=== PATIENT | female | born 1935 | race Caucasian/White ===

== ENCOUNTER → 2016-07-09 | Outpatient (CLI) | payer MEDICARE, OTHER ==
[~2016-07-09] MED LIST: ASPIR 8181 MG PO; AVALIDE 12.5 MG1 TA2 PO; CAL-CITRATE PLU1 TAB PO; CALCIUM 600 + V1 TA1 PO; CRESTOR10 MG PO; DAYPRO600 M1 PO; FLAXSEED OIL1 CAP PO; HYZAAR 12.5 MG-1 TA1 PO; Hyzaar 12.5 MG-1 TAB PO; LOPRESSOR25 MG PO; MEDROL DOSEPAK4 MG PO; OMEPRAZOLE DR20 MG PO; RED YEAST RICE600 MG PO; ROBAXIN750 MG PO; SIMVASTATIN20 MG PO; VICODIN 500 MG-1 TAB PO; ZYRTEC10 MG PO
== END | disposition home or self-care (01) ==
LOC: US 09:00
DX: I10 Essential (primary) hypertension (principal); I73.9 Peripheral vascular disease, unspecified; R60.0 Localized edema

== ENCOUNTER → 2016-12-23 | Outpatient (CLI) | payer MEDICARE, OTHER | END | disposition home or self-care (01) | LOC: MAMMO 12:13 | DX: Z12.31 Encounter for screening mammogram for malignant neoplasm of breast (principal); R92.8 Other abnormal and inconclusive findings on diagnostic imaging of breast ==

== ENCOUNTER 2017-01-28 10:38 | Emergency (ER) | payer MEDICARE, OTHER ==
[~2017-01-28] VITALS: Wt 66.7 kg
[2017-01-28] MEDS ORDERED: NAPROSYN500 MG PO (12:26)
[2017-01-28] MEDS ORDERED: 'PARAFON FORTE500 M1 PO (12:26)
== END 2017-01-28 13:40 | disposition home or self-care (01) ==
LOC: ED 10:38
DX: M25.511 Pain in right shoulder (principal); M54.41 Lumbago with sciatica, right side; R03.0 Elevated blood-pressure reading, without diagnosis of hypertension; Z88.1 Allergy status to other antibiotic agents; Z88.2 Allergy status to sulfonamides; Z79.82 Long term (current) use of aspirin; Z90.49 Acquired absence of other specified parts of digestive tract

== ENCOUNTER → 2017-06-07 | Outpatient (CLI) | payer MEDICARE, OTHER ==
[~2017-06-07] MED LIST changes: +'PARAFON FORTE500 M1 PO; +NAPROSYN500 MG PO
== END | disposition home or self-care (01) ==
LOC: RAD 14:17
DX: M41.84 Other forms of scoliosis, thoracic region (principal); R06.02 Shortness of breath; R09.89 Other specified symptoms and signs involving the circulatory and respiratory systems; Z90.49 Acquired absence of other specified parts of digestive tract

== ENCOUNTER → 2017-06-10 | Outpatient (CLI) | payer MEDICARE, OTHER | LOC: LAB 10:37 | DX: D64.9 Anemia, unspecified (principal); R19.37 Generalized abdominal rigidity ==

== ENCOUNTER 2017-10-02 10:23 | Emergency (ER) | payer MEDICARE, OTHER ==
[~2017-10-02] VITALS: Ht 157.4 cm; Wt 64.9 kg
[2017-10-02 11:00] LABS: BASO % 0.4 % (0.0-1.0); EOS # 0.1 10*3/uL (0.0-0.4); EOS % 0.8 % (1.0-4.0); HEMATOCRIT 35.1 % (37.0-47.0); HEMOGLOBIN 11.8 g/dl (12.0-16.0); LYMPH # 1.6 10*3/uL (1.3-4.4); LYMPH % 22.1 % (27.0-41.0); MEAN CELL VOLUME 89.5 fl (81.0-99.0); MEAN CORPUSCULAR HGB 30.1 pg (27.0-31.0); MEAN CORPUSCULAR HGB CONC 33.6 g/dl (33.0-37.0); MEAN PLATELET VOLUME 8.9 fl (9.6-12.3); MONO # 0.7 10*3/uL (0.1-1.0); MONO % 8.8 % (3.0-9.0); NEUT # 4.9 10*3/uL (2.3-7.9); PLATELET COUNT AUTOMATED 264 10*3/uL (130-400); RED BLOOD COUNT 3.92 10*6/uL (4.10-5.10); RED CELL DISTRI WIDTH 13.4 % (0-14.5); WHITE BLOOD COUNT 7.4 10*3/uL (4.8-10.8)
[2017-10-02 11:10] LABS: ACT PARTIAL THROMBO TIME 21.5 SECONDS (20.8-31.5)
[2017-10-02 11:16] LABS: ALBUMIN 3.9 gm/dl (3.1-4.5); ALKALINE PHOSPHATASE 49 U/L (45-117); BUN 19 mg/dl (7-24); CHLORIDE 104 mmol/L (98-107); CREATININE 1.32 mg/dL (0.55-1.02); SGOT/AST 26 IU/L (3-35); SGPT/ALT 34 U/L (12-78); SODIUM 141 mmol/L (136-145); TOTAL PROTEIN 7.5 gm/dL (6.4-8.2)
[2017-10-02 11:23] LABS: TROPONIN I < 0.015 ng/ml (<0.045)
[2017-10-02 12:33] LABS: BILIRUBIN NEGATIVE (NEGATIVE); BLOOD NEGATIVE (NEGATIVE); CLARITY CLEAR (CLEAR); COLOR YELLOW (YELLOW); GLUCOSE NEGATIVE (NEGATIVE); KETONE NEGATIVE (NEGATIVE); LEUKO ESTERASE NEGATIVE (NEGATIVE); NITRITE NEGATIVE (NEGATIVE); PH 5.5 (5.0-9.0); SPECIFIC GRAVITY <= 1.005 (1.005-1.030); UROBILINOGEN 0.2 E.U./dl (0.2-1.0)
[2017-10-02 12:45] LABS: BACTERIA TRACE
== END 2017-10-02 13:12 | disposition home or self-care (01) ==
LOC: ED 10:23
PROVIDERS: Emergency Medicine
DX: R53.83 Other fatigue (principal); Z79.82 Long term (current) use of aspirin; Z88.2 Allergy status to sulfonamides; Z88.8 Allergy status to other drugs, medicaments and biological substances

== ENCOUNTER → 2017-10-04 | Outpatient (CLI) | payer OTHER ==
[2017-10-04 16:53] LABS: CREATININE 1.33 mg/dL (0.55-1.02); POTASSIUM 4.6 mmol/L (3.5-5.1)
== END | disposition home or self-care (01) ==
LOC: LAB 16:07
PROVIDERS: Emergency Medicine
DX: R53.83 Other fatigue (principal)

== ENCOUNTER → 2018-04-17 | Outpatient (CLI) | payer OTHER | END | disposition home or self-care (01) | LOC: RAD 15:15 | DX: M50.30 Other cervical disc degeneration, unspecified cervical region (principal); M48.02 Spinal stenosis, cervical region; M85.88 Other specified disorders of bone density and structure, other site; M79.601 Pain in right arm ==

== ENCOUNTER 2018-06-29 18:23 | Inpatient (IN) | payer OTHER ==
[~2018-06-29] VITALS: Ht 157.4 cm; Wt 65.3 kg
--- NOTE | ~2018-06-29 | WRIGHTHP ---
[place], [place] PATIENT HISTORY AND PHYSICAL EXAM NAME: ANDRIY HARRISON UNIT #: [id number] ROOM: 419 DOCTOR: MUKUND VANN MD BIRTHDATE: [birth year] DOS: 06/29/2018 HISTORY OF PRESENT ILLNESS: This patient is 82 years old, very well known to us. She was in the office a day prior to this admission, was diagnosed with UTI, was placed on antibiotics. At that time, she did complain of a lot of aches and pains. She went to work yesterday and was found to be slightly confused by the family, was brought to the Emergency Room, but the patient this morning is fairly awake and alert and oriented. She complains of dysuria and frequency of urination. She also has lot of aches and pains. Denies having any chest pains, palpitations or shortness of breath. PAST MEDICAL HISTORY: Significant for; 1. Benign hypertension. 2. Complex cyst of the kidney, status post evaluation by Urology for a repeat CAT scan in September. 3. Mixed hyperlipidemia. 4. Primary osteoarthritis, multiple joints. MEDICATIONS: Omeprazole 20, metoprolol 2.5 b.i.d., aspirin 81 daily, Crestor 10 daily, losartan/hydrochlorothiazide 100/12.5 mg daily. SOCIAL HISTORY: Nonsmoker, does not use any alcohol. PHYSICAL EXAMINATION: GENERAL: She is awake and alert and oriented. VITAL SIGNS: This morning graphic trend shows a pressure of 122/67, pulse of 90, respirations 18, and temperature 97.7. LUNGS: Clear. HEART: Regular. ABDOMEN: Soft. EXTREMITIES: Without any edema. ASSESSMENT AND PLAN: 1. Metabolic encephalopathy, most likely from urinary tract infection. The patient will be placed on IV antibiotics and urine culture has been ordered. Depending on the culture results, we will decide on further changes in medications. 2. Myalgias and arthralgias, possibly from primary osteoarthritis and recent viral syndrome. Tylenol is ordered for pain. 3. Acute kidney injury, possibly from acute tubular necrosis from underlying bladder infection. We will also discontinue the hydrochlorothiazide. 4. Adult failure to thrive, may benefit from visiting nurses, and PT, OT at home. [place], [place] PATIENT HISTORY AND PHYSICAL EXAM NAME: ANDRIY HARRISON UNIT #: [id number] ROOM: [facility] DOCTOR: MUKUND VANN MD BIRTHDATE: [birth year] MUKUND VANN MD CM:HISPHYS:PATIENT HISTORY AND PHYSICAL EXAMINATION 2 6 MUKUND VANN MD 06/30/18917 interface
--- NOTE | ~2018-06-29 | EKG ---
[place], [place] ELECTROCARDIOGRAM REPORT NAME: ANDRIY HARRISON UNIT #: [id number] ROOM: 419 DOCTOR: ANA PAULA DRAFT REPORT BIRTHDATE: [birth year] [facility] Test Date: 2018-06-29 Test Time: 19:07:41 Pat Name: ANDRIY HARRISON Department: Room: 019 Gender: F Softball Umpire: : 1935 Requested By: CHARU HASSAN DNP Order Number: [id number] Reading MD: Sergio Hooper MD Measurements Intervals [place] Rate: 103 P: 20 [place]: 125 QRS: 0 QRSD: 93 T: -16 QT: 342 QTc: 448 Interpretive Statements Sinus tachycardia Left ventricular hypertrophy Inferior infarct, age indeterminate No previous ECG available for comparison Electronically Signed On 06-30-2018 15:57:19 PST by Sergio Hooper MD CM:EKGRPT:ELECTROCARDIOGRAM REPORT [id number] CHARU GOSS DRAFT REPORT CHARU HASSAN DNP
--- NOTE | ~2018-06-29 | PR ---
[place], [place] PROGRESS NOTE NAME: ANDRIY HARRISON UNIT #: [id number] ROOM: 419 DOCTOR: MUKUND VANN MD BIRTHDATE: [birth year] DOS: 07/01/2018 SUBJECTIVE: The patient is doing well, does not have any new complaints. Did not sleep very well. OBJECTIVE: VITAL SIGNS: Graphic trend shows a pressure of 139/80, pulse of 90, respirations 18, temperature 98.1. LUNGS: Clear. HEART: Regular, tachycardic, heart rate is in the low 90s. ABDOMEN: Obese, soft. EXTREMITIES: Without any edema. LABORATORY DATA: Urinalysis was refluxed, but we do not have the results yet. ASSESSMENT AND PLAN: 1. Acute kidney injury, possibly from acute tubular necrosis. 2. Urinary tract infection, awaiting culture results. 3. Metabolic encephalopathy from the urinary tract infection, which is resolved. 4. Benign hypertension, controlled. The plan is to discharge the patient to home today. MUKUND VANN MD CM:PNTRANS [id number] MUKUND VANN MD 07/01/182229 interface
[2018-06-29 18:25] VITALS: BP 130/78
[2018-06-29 19:04] LABS: BASO % 0.3 % (0.0-1.0); EOS # 0.1 10*3/uL (0.0-0.4); EOS % 0.5 % (1.0-4.0); HEMOGLOBIN 11.5 g/dl (12.0-16.0); LYMPH # 1.2 10*3/uL (1.3-4.4); LYMPH % 12.8 % (27.0-41.0); MEAN CELL VOLUME 93.9 fl (81.0-99.0); MEAN CORPUSCULAR HGB 31.8 pg (27.0-31.0); MEAN CORPUSCULAR HGB CONC 33.8 g/dl (33.0-37.0); MEAN PLATELET VOLUME 9.2 fl (9.6-12.3); MONO # 0.8 10*3/uL (0.1-1.0); MONO % 8.4 % (3.0-9.0); NEUT # 7.1 10*3/uL (2.3-7.9); NEUT % 77.3 % (47.0-73.0); PLATELET COUNT AUTOMATED 302 10*3/uL (130-400); RED BLOOD COUNT 3.62 10*6/uL (4.10-5.10); RED CELL DISTRI WIDTH 12.4 % (0-14.5); WHITE BLOOD COUNT 9.2 10*3/uL (4.8-10.8)
--- NOTE | 2018-06-29 19:19 | NUR ---
PATIENT TO CAT SCAN AT THIS TIME
[2018-06-29 19:21] LABS: ALBUMIN 4.1 gm/dl (3.1-4.5); ALKALINE PHOSPHATASE 45 U/L (45-117); BUN 25 mg/dl (7-24); CHLORIDE 102 mmol/L (98-107); CREATININE 1.19 mg/dL (0.55-1.02); LIPASE 264 U/L (73-393); POTASSIUM 3.8 mmol/L (3.5-5.1); SGOT/AST 16 IU/L (3-35); SGPT/ALT 23 U/L (12-78); SODIUM 137 mmol/L (136-145); TOTAL PROTEIN 7.2 gm/dL (6.4-8.2)
[2018-06-29 19:22] LABS: TROPONIN I < 0.015 ng/ml (<0.045)
[2018-06-29 19:23] LABS: ACT PARTIAL THROMBO TIME 21.6 SECONDS (20.8-31.5)
[2018-06-29 20:10] LABS: BILIRUBIN NEGATIVE (NEGATIVE); BLOOD NEGATIVE (NEGATIVE); CLARITY CLEAR (CLEAR); COLOR YELLOW (YELLOW); GLUCOSE NEGATIVE (NEGATIVE); KETONE NEGATIVE (NEGATIVE); LEUKO ESTERASE 2+ (NEGATIVE); NITRITE NEGATIVE (NEGATIVE); SPECIFIC GRAVITY <= 1.005 (1.005-1.030); UROBILINOGEN 0.2 E.U./dl (0.2-1.0)
[2018-06-29 20:24] LABS: BACTERIA TRACE; EPITHELIAL CELLS 16-20; WBC 16-20 wbc/hpf (0-5)
[2018-06-29 21:23] VITALS: BP 119/62
[2018-06-29 21:40] VITALS: BP 128/80
--- NOTE | 2018-06-29 21:40 | NUR ---
A 82, admitted to , under the services of MUKUND Walker MD with a diagnosis of UTI, DIZZYNESS. Chief complaint is CONFUSION. Patient arrived via bed from ER. Monitor applied. Initial assessment completed. Vital signs taken and recorded. MUKUND WALKER MD notified of admission to the unit. Orders received. See assessment for past medical history, medications and allergies. Patient and/or family oriented to unit. [facility] visitation policy reviewed. Clothing/patient valuable form completed. NABOR SANCHEZ
[2018-06-29] MEDS ORDERED: KLOR-CON M1010 ME1 PO (21:58)
[2018-06-29] MEDS ORDERED: LOSARTAN POTAS100 M1 PO (22:00)
[2018-06-29] MEDS ORDERED: AMOXICILLIN500 M2 PO (22:01)
--- NOTE | 2018-06-29 22:14 | NUR ---
NOTIFIED DR VANN OF PATIENTS ADMISSION TO FLOOR. NEW ORDERS RECEIVED.
[2018-06-30] VITALS: BP 122/67
[2018-06-30 06:33] LABS: BASO % 0.4 % (0.0-1.0); EOS % 0.6 % (1.0-4.0); HEMATOCRIT 30.5 % (37.0-47.0); HEMOGLOBIN 9.9 g/dl (12.0-16.0); LYMPH # 1.2 10*3/uL (1.3-4.4); LYMPH % 17.7 % (27.0-41.0); MEAN CELL VOLUME 96.2 fl (81.0-99.0); MEAN CORPUSCULAR HGB 31.2 pg (27.0-31.0); MEAN CORPUSCULAR HGB CONC 32.5 g/dl (33.0-37.0); MEAN PLATELET VOLUME 9.6 fl (9.6-12.3); MONO # 0.7 10*3/uL (0.1-1.0); MONO % 9.6 % (3.0-9.0); NEUT # 4.8 10*3/uL (2.3-7.9); NEUT % 71.1 % (47.0-73.0); PLATELET COUNT AUTOMATED 253 10*3/uL (130-400); RED BLOOD COUNT 3.17 10*6/uL (4.10-5.10); RED CELL DISTRI WIDTH 12.5 % (0-14.5); WHITE BLOOD COUNT 6.8 10*3/uL (4.8-10.8)
[2018-06-30 06:45] LABS: CREATININE 1.11 mg/dL (0.55-1.02); POTASSIUM 4.5 mmol/L (3.5-5.1)
[2018-06-30 08:00] VITALS: BP 126/68
--- NOTE | 2018-06-30 11:00 | NUR ---
Manager Business Planning in to talk to patient. Patient states lives at home with her son. There are 2 steps in the home. Physician: Dr. Angeli Bhatt Pharmacy: [facility] Home health services: none Patient's level of ADLs: INDEPENDENT Patient has working utilities: yes DME: none Follow-up physician's appointment after d/c: she prefers to make her own follow up appt after discharge Does patient want to access PORTAL?: no Discharge plan discussed with patient and her son who is at the bedside. She lives at home with her son. She is independent in her ADLs and ambulation. Discussed home health care services and she denies any home needs at this time. When medically stable she will be discharged to home. RYAN MORSE
[2018-06-30 12:00] VITALS: BP 118/65
[2018-06-30 16:00] VITALS: BP 126/67
[2018-06-30 20:00] VITALS: BP 126/75
--- NOTE | 2018-06-30 20:03 | NUR ---
AWAKE/ALERT FOR SHIFT ASSESSMENT. RESPIRATIONS EASY/REG ON RA. IV FLUIDS MAINTAINED PER ORDER. IV ABX INFUSING. ASSISTED PATIENT TO BATHROOM AND BACK TO BED, STEADY GAIT ASSESSED. RESTING COMFORTABLY AT THIS TIME. BED IN LOW POSITION. WHEELS LOCKED, CALL LIGHT IN REACH
[2018-07-01] VITALS: BP 139/81
--- NOTE | 2018-07-01 02:55 | NUR ---
PATIENT SLEEPING. NO S/S OF DISTRESS NOTED. IVF MAINTAINED PER ORDER. RESPIRATIONS EASY/REG ON RA. CALL LIGHT IN REACH
[2018-07-01] MEDS ORDERED: CEFUROXIME AXE250 MG PO (05:42)
--- NOTE | 2018-07-01 05:47 | NUR ---
DR. VANN REQUESTED RESULTS OF . LAB CALLED AND REPORT GIVEN. DR. VANN NOTIFIED.
[2018-07-01 06:14] LABS: BASO # 0.1 10*3/uL (0.0-0.1); BASO % 0.8 % (0.0-1.0); EOS # 0.1 10*3/uL (0.0-0.4); EOS % 1.3 % (1.0-4.0); HEMATOCRIT 30.1 % (37.0-47.0); HEMOGLOBIN 9.6 g/dl (12.0-16.0); LYMPH # 1.4 10*3/uL (1.3-4.4); LYMPH % 21.7 % (27.0-41.0); MEAN CELL VOLUME 97.1 fl (81.0-99.0); MEAN CORPUSCULAR HGB CONC 31.9 g/dl (33.0-37.0); MEAN PLATELET VOLUME 9.5 fl (9.6-12.3); MONO # 0.6 10*3/uL (0.1-1.0); MONO % 9.6 % (3.0-9.0); NEUT # 4.1 10*3/uL (2.3-7.9); NEUT % 65.6 % (47.0-73.0); PLATELET COUNT AUTOMATED 249 10*3/uL (130-400); RED CELL DISTRI WIDTH 12.6 % (0-14.5); WHITE BLOOD COUNT 6.3 10*3/uL (4.8-10.8)
[2018-07-01 06:17] LABS: BUN 17 mg/dl (7-24); CHLORIDE 112 mmol/L (98-107); CREATININE 0.86 mg/dL (0.55-1.02); SODIUM 143 mmol/L (136-145)
--- NOTE | 2018-07-01 06:32 | NUR ---
NOTIFIED DR VANN OF PATIENTS LABS AND STATES THE PATIENT IS OKAY TO BE DISCHARGED
--- NOTE | 2018-07-01 06:52 | NUR ---
PATIENT DISCHARGED. VERBALZIED UNDERSTANDING OF DISCHARGE INSTRUCTIONS. IV REMOVED AND PRESSURE DRESSING APPLIED. HEART MONITOR REMOVED AND RETURNED TO FLOOR.
== END 2018-07-01 07:10 | disposition home or self-care (01) | DRG 70 ==
LOC: ED 18:23 → EDHOLD 21:02 → 4E 21:02
PROVIDERS: Nurse Practitioner Family; ADMIT Internal Medicine
DX: G93.41 Metabolic encephalopathy (principal); N17.0 Acute kidney failure with tubular necrosis; N30.00 Acute cystitis without hematuria; M25.50 Pain in unspecified joint; R62.7 Adult failure to thrive; M79.10 Myalgia, unspecified site; Z88.0 Allergy status to penicillin; Z88.8 Allergy status to other drugs, medicaments and biological substances; Z79.899 Other long term (current) drug therapy; Z90.49 Acquired absence of other specified parts of digestive tract; Z98.49 Cataract extraction status, unspecified eye

== ENCOUNTER 2019-04-05 03:44 | Inpatient (IN) | payer OTHER ==
[2019-04-05] VITALS (7 sets, daily range): BP systolic 122–170; BP diastolic 81–108
[~2019-04-05] VITALS: Ht 157.4 cm; Wt 63.1 kg
[~2019-04-05 03:44] MED LIST changes: +AMLODIPINE BES2.5 MG PO; +AMOXICILLIN500 M2 PO; +CEFUROXIME AXE250 MG PO; +CIPROFLOXACIN500 M4 PO; +CRANBERRY PLUS1 EACH PO; +DICLOFENAC SOD100 G1 T; +IRON325 M1 PO; +KLOR-CON M1010 ME1 PO; +LOSARTAN POTAS100 M1 PO; +QUESTRAN LIGHT4 GM PO; +VITAMIN D22000 UNIT PO
[2019-04-05 04:45] LABS: BASO % 0.5 % (0.0-1.0); EOS # 0.2 10*3/uL (0.0-0.4); EOS % 2.5 % (1.0-4.0); HEMATOCRIT 36.9 % (37.0-47.0); HEMOGLOBIN 11.8 g/dl (12.0-16.0); LYMPH # 1.5 10*3/uL (1.3-4.4); LYMPH % 19.8 % (27.0-41.0); MEAN CELL VOLUME 92.5 fl (81.0-99.0); MEAN CORPUSCULAR HGB 29.6 pg (27.0-31.0); MEAN PLATELET VOLUME 9.3 fl (9.6-12.3); MONO # 0.8 10*3/uL (0.1-1.0); NEUT # 4.9 10*3/uL (2.3-7.9); NEUT % 65.8 % (47.0-73.0); PLATELET COUNT AUTOMATED 250 10*3/uL (130-400); RED BLOOD COUNT 3.99 10*6/uL (4.10-5.10); RED CELL DISTRI WIDTH 13.3 % (0-14.5); WHITE BLOOD COUNT 7.5 10*3/uL (4.8-10.8)
[2019-04-05 04:58] LABS: INTERNATIONAL NORM RATIO 0.9 (2.0-3.5)
[2019-04-05 05:02] LABS: ALBUMIN 3.6 gm/dl (3.1-4.5); ALKALINE PHOSPHATASE 62 U/L (45-117); BUN 10 mg/dl (7-24); CHLORIDE 111 mmol/L (98-107); CREATININE 0.91 mg/dL (0.55-1.02); LIPASE 290 U/L (73-393); POTASSIUM 3.3 mmol/L (3.5-5.1); SGOT/AST 23 IU/L (3-35); SGPT/ALT 22 U/L (12-78); SODIUM 144 mmol/L (136-145); TOTAL PROTEIN 7.2 gm/dL (6.4-8.2)
[2019-04-05 05:03] LABS: TROPONIN I < 0.015 ng/ml (<0.045)
[2019-04-05 05:12] LABS: BILIRUBIN NEGATIVE (NEGATIVE); BLOOD TRACE-INTACT (NEGATIVE); CLARITY SL CLOUDY (CLEAR); COLOR YELLOW (YELLOW); GLUCOSE NEGATIVE (NEGATIVE); KETONE NEGATIVE (NEGATIVE); LEUKO ESTERASE 3+ (NEGATIVE); NITRITE NEGATIVE (NEGATIVE); SPECIFIC GRAVITY <= 1.005 (1.005-1.030); UROBILINOGEN 0.2 E.U./dl (0.2-1.0)
[2019-04-05 05:30] LABS: BACTERIA 1+; WBC TNTC wbc/hpf (0-5)
--- NOTE | 2019-04-05 05:32 | NUR ---
PATIENT MOTHER NURYS BERNARDO AT BEDSIDE, PROVIDED PHONE # [phone]
--- NOTE | 2019-04-05 08:00 | NUR ---
A 83, admitted to 4E, under the services of MUKUND Walker MD with a diagnosis of UTI, HYPOMAGNESEMIA, ELEVATED LACTIC ACID, CHEST PAIN. Chief complaint is BURNING WITH URINATION, ABD PAIN. Patient arrived via ambulatory from ER. Monitor applied. Initial assessment completed. Vital signs taken and recorded. MUKUND WALKER MD notified of admission to the unit. Orders received. See assessment for past medical history, medications and allergies. Patient and/or family oriented to unit. [facility] visitation policy reviewed. Clothing/patient valuable form completed. SATINDER BAHENA
--- NOTE | 2019-04-05 10:00 | NUR ---
Sample Finisher in to talk to patient. Patient states lives at home with her son. There are 4 outside steps in the home. Physician: Dr. Angeli Bhatt Pharmacy: [facility] Home health services: none Patient's level of ADLs: INDEPENDENT Patient has working utilities: yes DME: none Follow-up physician's appointment after d/c: she prefers to make her own follow up appt after discharge Does patient want to access PORTAL?: no Discharge plan discussed with patient. She lives at home with her son. She is independent in her ADLs and ambulation. Discussed home health care services and she denies any home needs at this time. When medically stable she will be discharged to home. Her daughter will provide transportation on discharge. RYAN MORSE
--- NOTE | 2019-04-05 21:51 | NUR ---
PATIENT RESTING IN BED. VOICES NO COMPLAINTS AT THIS TIME. RESPIRATIONS EASY, NON LABORED. IV FLUIDS RUNNING. BED IN LOWEST POSITION, CALL LIGHT WITIN REACH.
[2019-04-06] VITALS: BP 143/85
[2019-04-06 06:37] LABS: BASO % 0.4 % (0.0-1.0); EOS # 0.2 10*3/uL (0.0-0.4); HEMATOCRIT 37.2 % (37.0-47.0); HEMOGLOBIN 12.1 g/dl (12.0-16.0); LYMPH # 1.5 10*3/uL (1.3-4.4); LYMPH % 21.9 % (27.0-41.0); MEAN CORPUSCULAR HGB 29.6 pg (27.0-31.0); MEAN CORPUSCULAR HGB CONC 32.5 g/dl (33.0-37.0); MEAN PLATELET VOLUME 9.4 fl (9.6-12.3); MONO # 0.7 10*3/uL (0.1-1.0); NEUT # 4.5 10*3/uL (2.3-7.9); NEUT % 64.4 % (47.0-73.0); PLATELET COUNT AUTOMATED 259 10*3/uL (130-400); RED BLOOD COUNT 4.09 10*6/uL (4.10-5.10); RED CELL DISTRI WIDTH 13.4 % (0-14.5)
[2019-04-06 06:47] LABS: BUN 10 mg/dl (7-24); CHLORIDE 109 mmol/L (98-107); CREATININE 0.85 mg/dL (0.55-1.02); POTASSIUM 3.8 mmol/L (3.5-5.1); SODIUM 142 mmol/L (136-145)
[2019-04-06 08:00] VITALS: BP 140/89
--- NOTE | 2019-04-06 09:00 | NUR ---
PT RESTING IN BED, DENIES ANY COMPLAINTS, REPORTS SHE IS FEELING MUCH BETTER. CALL LIGHT WITHIN REACH.
[2019-04-06 12:00] VITALS: BP 150/86
--- NOTE | 2019-04-06 14:00 | NUR ---
Corrosion Prevention Metal Sprayer in to see patient. Daughter, granddaughter, and great grandchildren at are at the bedside. Discussed and completed HPOA. Witnessed by binder caser and social worker palliative care. She denies any home needs at this time. When medically stable she will be discharged to home. Per multidisciplinary discharge planning meeting patient UC is growing GNB and BC are still pending. + UA on IV Rocephin. IVFs and IV Protonix.
--- NOTE | 2019-04-06 14:08 | NUR ---
PT REQUESTING REGULAR DIET, SPOKE WITH DR GORDILLO. ORDER RECEIVED.
[2019-04-06 16:00] VITALS: BP 132/77
[2019-04-06 20:00] VITALS: BP 149/88
[2019-04-07] VITALS: BP 150/99
[2019-04-07 00:30] VITALS: BP 148/88
--- NOTE | 2019-04-07 01:16 | NUR ---
Patient sleeping. Respirations relaxed and easy. Siderails up . [place] on. No signs of distress noted. Call light within reach. Will continue to monitor. LEWIS CABRAL
--- NOTE | 2019-04-07 06:22 | NUR ---
24 HR CHART CHECK COMPLETE.
[2019-04-07 12:00] VITALS: BP 124/74
[2019-04-07] MEDS ORDERED: SEPTDS PO (14:41)
[2019-04-07 15:28] VITALS: BP 146/92
--- NOTE | 2019-04-07 15:32 | NUR ---
Discharge instructions reviewed with patient/family. Patient receptive and verbalizes understanding. Follow-up care arranged. Written instructions given to patient/family. Patient was educated on new medications and to attend follow up visits. Patient ambulated from unit with all personal belongings accounted. LORNA NARVAEZ
== END 2019-04-07 15:32 | disposition home or self-care (01) | DRG 690 ==
LOC: ED 03:44 → EDHOLD 05:52 → 4E 05:52
PROVIDERS: Emergency Medicine; ADMIT Internal Medicine
DX: N39.0 Urinary tract infection, site not specified (principal); E78.2 Mixed hyperlipidemia; R31.9 Hematuria, unspecified; E83.42 Hypomagnesemia; K29.00 Acute gastritis without bleeding; M15.9 Polyosteoarthritis, unspecified; K21.0 Gastro-esophageal reflux disease with esophagitis; E55.9 Vitamin D deficiency, unspecified; K52.89 Other specified noninfective gastroenteritis and colitis; B96.89 Other specified bacterial agents as the cause of diseases classified elsewhere; K44.9 Diaphragmatic hernia without obstruction or gangrene; D50.9 Iron deficiency anemia, unspecified; I10 Essential (primary) hypertension; Z88.8 Allergy status to other drugs, medicaments and biological substances; Z88.1 Allergy status to other antibiotic agents; Z90.49 Acquired absence of other specified parts of digestive tract; Z98.41 Cataract extraction status, right eye; Z98.42 Cataract extraction status, left eye

== ENCOUNTER → 2019-07-06 | Day surgery (SDC) | payer OTHER ==
[~2019-07-06] VITALS: Ht 157.4 cm; Wt 59.4 kg
[~2019-07-06] MED LIST changes: +SEPTDS PO
[2019-07-06 11:40] VITALS: BP 134/95
[2019-07-06 12:54] VITALS: BP 124/82
[2019-07-06 13:09] VITALS: BP 127/79
[2019-07-06 13:24] VITALS: BP 135/87
== END | disposition home or self-care (01) ==
LOC: SDC 07-03 09:30
DX: R19.4 Change in bowel habit (principal); K57.30 Diverticulosis of large intestine without perforation or abscess without bleeding; K29.50 Unspecified chronic gastritis without bleeding; K44.9 Diaphragmatic hernia without obstruction or gangrene; K21.9 Gastro-esophageal reflux disease without esophagitis; E78.5 Hyperlipidemia, unspecified; I10 Essential (primary) hypertension; Z90.49 Acquired absence of other specified parts of digestive tract; Z87.891 Personal history of nicotine dependence; Z98.890 Other specified postprocedural states; Z79.899 Other long term (current) drug therapy

== ENCOUNTER 2019-09-05 14:54 | Emergency (ER) | payer OTHER ==
[~2019-09-05] VITALS: Ht 157.4 cm; Wt 59.4 kg
[2019-09-05 16:04] LABS: HEMATOCRIT 35.3 % (37.0-47.0); HEMOGLOBIN 11.3 g/dl (12.0-16.0); MEAN CELL VOLUME 92.2 fl (81.0-99.0); MEAN CORPUSCULAR HGB 29.5 pg (27.0-31.0); MEAN PLATELET VOLUME 9.4 fl (9.6-12.3); PLATELET COUNT AUTOMATED 203 10*3/uL (130-400); RED BLOOD COUNT 3.83 10*6/uL (4.10-5.10); WHITE BLOOD COUNT 4.4 10*3/uL (4.8-10.8)
[2019-09-05 16:19] LABS: ALBUMIN 3.3 gm/dl (3.1-4.5); ALKALINE PHOSPHATASE 53 U/L (45-117); BUN 13 mg/dl (7-24); CHLORIDE 108 mmol/L (98-107); CREATININE 0.95 mg/dL (0.55-1.02); POTASSIUM 4.4 mmol/L (3.5-5.1); SGOT/AST 22 IU/L (3-35); SGPT/ALT 25 U/L (12-78); SODIUM 139 mmol/L (136-145); TOTAL PROTEIN 6.7 gm/dL (6.4-8.2)
[2019-09-05 16:26] LABS: ATYPICAL LYMPHS 2 % (0-0); TOTAL CELLS COUNTED 100 #CELLS
[2019-09-05 16:27] LABS: OVALOCYTES FEW; PLATELET SUFFICIENCY NORMAL (NORMAL)
[2019-09-05] MEDS ORDERED: VIBRAMYCIN100 MG PO (17:29)
[2019-09-05] MEDS ORDERED: KETOROLAC10 MG PO (17:31)
== END 2019-09-05 17:38 | disposition home or self-care (01) ==
LOC: ED 14:54
PROVIDERS: Emergency Medicine
DX: J20.9 Acute bronchitis, unspecified (principal); Z88.8 Allergy status to other drugs, medicaments and biological substances; Z88.2 Allergy status to sulfonamides; Z79.899 Other long term (current) drug therapy; Z79.82 Long term (current) use of aspirin

== ENCOUNTER → 2020-03-21 | Outpatient (CLI) | payer OTHER ==
[~2020-03-21] MED LIST changes: +KETOROLAC10 MG PO; +VIBRAMYCIN100 MG PO
[2020-03-21 08:33] LABS: BASO # 0.1 10*3/uL (0.0-0.1); BASO % 0.7 % (0.0-1.0); EOS # 0.2 10*3/uL (0.0-0.4); EOS % 2.8 % (1.0-4.0); HEMATOCRIT 39.6 % (37.0-47.0); LYMPH # 1.4 10*3/uL (1.3-4.4); LYMPH % 18.3 % (27.0-41.0); MEAN CELL VOLUME 93.4 fl (81.0-99.0); MEAN CORPUSCULAR HGB 29.5 pg (27.0-31.0); MEAN CORPUSCULAR HGB CONC 31.6 g/dl (33.0-37.0); MEAN PLATELET VOLUME 9.3 fl (9.6-12.3); MONO # 0.8 10*3/uL (0.1-1.0); MONO % 10.8 % (3.0-9.0); NEUT # 4.9 10*3/uL (2.3-7.9); NEUT % 66.5 % (47.0-73.0); PLATELET COUNT AUTOMATED 314 10*3/uL (130-400); RED BLOOD COUNT 4.24 10*6/uL (4.10-5.10); RED CELL DISTRI WIDTH 13.3 % (0-14.5); WHITE BLOOD COUNT 7.4 10*3/uL (4.8-10.8)
[2020-03-21 08:48] LABS: ALBUMIN 3.6 gm/dl (3.1-4.5); ALKALINE PHOSPHATASE 60 U/L (45-117); BUN 12 mg/dl (7-24); CHLORIDE 106 mmol/L (98-107); CHOLESTEROL 174 mg/dL (<200); CREATININE 0.92 mg/dL (0.55-1.02); FREE T4 1.21 ng/dl (0.76-1.46); HDL CHOLESTEROL 54 mg/dl (40-60); LDL CHOLESTEROL 90 mg/dL (9-159); POTASSIUM 4.4 mmol/L (3.5-5.1); SGOT/AST 15 IU/L (3-35); SGPT/ALT 25 U/L (12-78); SODIUM 140 mmol/L (136-145); TOTAL PROTEIN 7.1 gm/dL (6.4-8.2); TRIGLYCERIDES 152 mg/dl (<150); VLDL CHOLESTEROL 30 mg/dL (6-40)
[2020-03-21 10:07] LABS: VITAMIN D, 25-HYDROXY 81.7 ng/mL (30-100)
== END | disposition home or self-care (01) ==
LOC: LAB 07:17
PROVIDERS: ATTEND Internal Medicine
DX: Z00.00 Encounter for general adult medical examination without abnormal findings (principal); E78.2 Mixed hyperlipidemia; E55.9 Vitamin D deficiency, unspecified; E87.6 Hypokalemia; I10 Essential (primary) hypertension

== ENCOUNTER → 2020-07-17 | Outpatient (CLI) | payer OTHER | END | disposition home or self-care (01) | LOC: RAD 08:56 → LAB 08:56 | PROVIDERS: ATTEND Internal Medicine | DX: M25.511 Pain in right shoulder (principal) ==

== ENCOUNTER 2021-03-22 10:03 | Emergency (ER) | payer OTHER ==
[~2021-03-22] VITALS: Ht 152.4 cm; Wt 62.1 kg
[2021-03-22] MEDS ORDERED: AUGMENTIN 875-875 MG PO (11:13)
== END 2021-03-22 11:20 | disposition home or self-care (01) ==
LOC: ED 10:03
DX: S61.452A Open bite of left hand, initial encounter (principal); S61.451A Open bite of right hand, initial encounter; S91.351A Open bite, right foot, initial encounter; Z88.1 Allergy status to other antibiotic agents; Z88.8 Allergy status to other drugs, medicaments and biological substances; Z79.899 Other long term (current) drug therapy; Z79.82 Long term (current) use of aspirin; W54.0XXA Bitten by dog, initial encounter; Y93.89 Activity, other specified; Y92.89 Other specified places as the place of occurrence of the external cause; Y99.8 Other external cause status

== ENCOUNTER → 2021-03-31 | Outpatient (CLI) | payer OTHER ==
[~2021-03-31] MED LIST changes: +AUGMENTIN 875-875 MG PO
[2021-03-31 09:42] LABS: BASO % 0.5 % (0.0-1.0); EOS # 0.1 10*3/uL (0.0-0.4); EOS % 1.6 % (1.0-4.0); HEMATOCRIT 40.1 % (37.0-47.0); LYMPH # 1.7 10*3/uL (1.3-4.4); LYMPH % 22.8 % (27.0-41.0); MEAN CORPUSCULAR HGB 30.6 pg (27.0-31.0); MEAN CORPUSCULAR HGB CONC 32.2 g/dl (33.0-37.0); MONO # 0.7 10*3/uL (0.1-1.0); MONO % 9.2 % (3.0-9.0); NEUT % 65.1 % (47.0-73.0); PLATELET COUNT AUTOMATED 346 10*3/uL (130-400); RED BLOOD COUNT 4.22 10*6/uL (4.10-5.10); RED CELL DISTRI WIDTH 12.7 % (0-14.5); WHITE BLOOD COUNT 7.6 10*3/uL (4.8-10.8)
[2021-03-31 09:59] LABS: ALBUMIN 3.8 gm/dl (3.1-4.5); BUN 10 mg/dl (7-24); CHLORIDE 105 mmol/L (98-107); POTASSIUM 3.7 mmol/L (3.5-5.1); SODIUM 140 mmol/L (136-145)
[2021-03-31 10:06] LABS: ALKALINE PHOSPHATASE 57 U/L (45-117); CHOLESTEROL 174 mg/dL (<200); CREATININE 0.95 mg/dL (0.55-1.02); LDL CHOLESTEROL 86 mg/dL (9-159); SGOT/AST 19 IU/L (3-35); SGPT/ALT 24 U/L (12-78); TOTAL PROTEIN 7.8 gm/dL (6.4-8.2); TRIGLYCERIDES 212 mg/dl (<150)
[2021-03-31 10:11] LABS: VITAMIN D, 25-HYDROXY 67.2 ng/mL (30-100)
== END | disposition home or self-care (01) ==
LOC: LAB 09:05
PROVIDERS: ATTEND Internal Medicine
DX: Z13.1 Encounter for screening for diabetes mellitus (principal); D52.9 Folate deficiency anemia, unspecified; D51.9 Vitamin B12 deficiency anemia, unspecified; R70.0 Elevated erythrocyte sedimentation rate; R79.82 Elevated C-reactive protein (CRP); R74.8 Abnormal levels of other serum enzymes; R79.89 Other specified abnormal findings of blood chemistry; R53.81 Other malaise; E55.9 Vitamin D deficiency, unspecified; E03.9 Hypothyroidism, unspecified; Z13.0 Encounter for screening for diseases of the blood and blood-forming organs and certain disorders involving the immune mechanism; Z13.21 Encounter for screening for nutritional disorder; Z13.220 Encounter for screening for lipoid disorders

== ENCOUNTER → 2021-05-15 | Outpatient (CLI) | payer OTHER | END | disposition home or self-care (01) | LOC: CARD 01:08 | PROVIDERS: ATTEND Internal Medicine | DX: R07.9 Chest pain, unspecified (principal); I10 Essential (primary) hypertension ==

== ENCOUNTER → 2022-03-26 | Outpatient (CLI) | payer OTHER | END | disposition home or self-care (01) | LOC: RAD 10:25 | PROVIDERS: ATTEND Internal Medicine | DX: M85.9 Disorder of bone density and structure, unspecified (principal); M81.0 Age-related osteoporosis without current pathological fracture ==

== ENCOUNTER → 2022-11-26 | Outpatient (CLI) | payer MEDICARE ==
[2022-11-26 09:23] LABS: BASO # 0.1 10*3/uL (0.0-0.1); BASO % 0.8 % (0.0-1.0); EOS # 0.2 10*3/uL (0.0-0.4); EOS % 2.5 % (1.0-4.0); HEMATOCRIT 39.8 % (37.0-47.0); LYMPH # 1.4 10*3/uL (1.3-4.4); LYMPH % 17.7 % (27.0-41.0); MEAN CELL VOLUME 93.2 fl (81.0-99.0); MEAN CORPUSCULAR HGB CONC 32.2 g/dl (33.0-37.0); MEAN PLATELET VOLUME 8.8 fl (9.6-12.3); MONO # 0.8 10*3/uL (0.1-1.0); MONO % 10.1 % (3.0-9.0); NEUT # 5.3 10*3/uL (2.3-7.9); NEUT % 68.4 % (47.0-73.0); PLATELET COUNT AUTOMATED 333 10*3/uL (130-400); RED BLOOD COUNT 4.27 10*6/uL (4.10-5.10); RED CELL DISTRI WIDTH 13.3 % (0-14.5); WHITE BLOOD COUNT 7.7 10*3/uL (4.8-10.8)
[2022-11-26 10:00] LABS: VITAMIN D, 25-HYDROXY 87.1 ng/mL (30-100)
[2022-11-26 10:01] LABS: ALKALINE PHOSPHATASE 84 U/L (46-116); BUN 11 mg/dl (9-23); CHLORIDE 107 mmol/L (98-107); CHOLESTEROL 159 mg/dL (<200); LDL CHOLESTEROL 88 mg/dL (9-159); POTASSIUM 4.3 mmol/L (3.4-5.1); SGPT/ALT 20 U/L (10-49); THYROID STIM HORMONE (HS) 2.561 uIU/ml (0.550-4.780); TOTAL PROTEIN 7.2 gm/dL (6.0-8.0); TRIGLYCERIDES 127 mg/dl (<150)
== END | disposition home or self-care (01) ==
LOC: LAB 08:57 → US 09:30
PROVIDERS: ATTEND Internal Medicine
DX: I65.23 Occlusion and stenosis of bilateral carotid arteries (principal); R06.02 Shortness of breath; I10 Essential (primary) hypertension; E11.9 Type 2 diabetes mellitus without complications; E78.2 Mixed hyperlipidemia; E55.9 Vitamin D deficiency, unspecified

== ENCOUNTER → 2022-12-20 | Outpatient (CLI) | payer MEDICARE | END | disposition home or self-care (01) | LOC: MRI 01:17 | PROVIDERS: ATTEND Internal Medicine | DX: S32.030A Wedge compression fracture of third lumbar vertebra, initial encounter for closed fracture (principal); M47.816 Spondylosis without myelopathy or radiculopathy, lumbar region; R60.9 Edema, unspecified; X58.XXXA Exposure to other specified factors, initial encounter; Y93.89 Activity, other specified; Y92.89 Other specified places as the place of occurrence of the external cause; Y99.8 Other external cause status ==

== ENCOUNTER 2023-09-27 09:16 | Emergency (ER) | payer MEDICARE ==
[~2023-09-27 09:16] MED LIST changes: +AMOX-CLAV 875-1 EACH PO; +MAGNESIUM200 MG PO; +NEURONTIN100 MG PO; +REFRESH CLASSI1 EACH OP; +TOPROL XL25 MG PO; +VITAMIN D3250 MC2 PO
[2023-09-27] MEDS ORDERED: METOPROLOL TART50 M1 PO (09:33)
[2023-09-27 09:50] LABS: BASO # 0.1 10*3/uL (0.0-0.1); BASO % 0.4 % (0.0-1.0); EOS # 0.1 10*3/uL (0.0-0.4); EOS % 0.9 % (1.0-4.0); HEMATOCRIT 39.8 % (37.0-47.0); LYMPH # 1.4 10*3/uL (1.3-4.4); LYMPH % 11.3 % (27.0-41.0); MEAN CELL VOLUME 94.8 fl (81.0-99.0); MEAN CORPUSCULAR HGB CONC 31.7 g/dl (33.0-37.0); MEAN PLATELET VOLUME 9.2 fl (9.6-12.3); MONO # 1.2 10*3/uL (0.1-1.0); MONO % 9.8 % (3.0-9.0); NEUT # 9.3 10*3/uL (2.3-7.9); NEUT % 77.3 % (47.0-73.0); PLATELET COUNT AUTOMATED 306 10*3/uL (130-400); RED CELL DISTRI WIDTH 13.3 % (0-14.5)
[2023-09-27] MEDS ORDERED: Ondansetron Hydrochloride 4 MG TAB SL ONE (09:55)
[2023-09-27 10:09] LABS: BILIRUBIN Negative (Negative); BLOOD Negative (Negative); CLARITY Clear (Clear); COLOR Yellow (Yellow); GLUCOSE Negative (Negative); KETONE Negative (Negative); LEUKO ESTERASE 2+ (Negative); NITRITE Negative (Negative); PH 5.5 (4.5-8.0); UROBILINOGEN 0.2 E.U./dl (0.0-1.0)
[2023-09-27 10:17] LABS: ALKALINE PHOSPHATASE 58 U/L (46-116); BUN 12 mg/dl (9-23); CHLORIDE 105 mmol/L (98-107); LIPASE 72 U/L (12-53); POTASSIUM 4.4 mmol/L (3.4-5.1); SGPT/ALT 11 U/L (5-49); TOTAL PROTEIN 7.2 gm/dL (6.0-8.0)
[2023-09-27 10:44] LABS: BACTERIA 3+; WBC 21-30 wbc/hpf (0-5)
[2023-09-27] MEDS ORDERED: OMNICEF300 MG PO (10:49)
[2023-09-27] MEDS ORDERED: ONDANSETRON4 MG SL (10:50)
== END 2023-09-27 11:12 | disposition home or self-care (01) ==
LOC: ED 09:16
PROVIDERS: Nurse Practitioner Family
DX: N39.0 Urinary tract infection, site not specified (principal); Z20.822 Contact with and (suspected) exposure to COVID-19; A08.4 Viral intestinal infection, unspecified; R11.0 Nausea; E83.42 Hypomagnesemia; K21.9 Gastro-esophageal reflux disease without esophagitis; I10 Essential (primary) hypertension; E78.00 Pure hypercholesterolemia, unspecified; M19.90 Unspecified osteoarthritis, unspecified site; Z88.8 Allergy status to other drugs, medicaments and biological substances; Z88.2 Allergy status to sulfonamides; Z90.49 Acquired absence of other specified parts of digestive tract; Z98.890 Other specified postprocedural states

== ENCOUNTER → 2024-02-06 | Outpatient (CLI) | payer MEDICARE ==
[~2024-02-06] MED LIST changes: +METOPROLOL TART50 M1 PO; +OMNICEF300 MG PO; +ONDANSETRON4 MG SL
[2024-02-06 11:03] LABS: BASO # 0.1 10*3/uL (0.0-0.1); BASO % 0.6 % (0.0-1.0); EOS # 0.1 10*3/uL (0.0-0.4); EOS % 1.4 % (1.0-4.0); HEMATOCRIT 39.6 % (37.0-47.0); LYMPH # 1.5 10*3/uL (1.3-4.4); LYMPH % 18.8 % (27.0-41.0); MEAN CELL VOLUME 92.5 fl (81.0-99.0); MEAN CORPUSCULAR HGB 30.6 pg (27.0-31.0); MEAN CORPUSCULAR HGB CONC 33.1 g/dl (33.0-37.0); MEAN PLATELET VOLUME 9.2 fl (9.6-12.3); MONO # 0.9 10*3/uL (0.1-1.0); MONO % 11.9 % (3.0-9.0); NEUT # 5.2 10*3/uL (2.3-7.9); NEUT % 66.9 % (47.0-73.0); PLATELET COUNT AUTOMATED 271 10*3/uL (130-400); RED BLOOD COUNT 4.28 10*6/uL (4.10-5.10); RED CELL DISTRI WIDTH 13.6 % (0-14.5); WHITE BLOOD COUNT 7.7 10*3/uL (4.8-10.8)
[2024-02-06 11:55] LABS: ALKALINE PHOSPHATASE 55 U/L (46-116); BUN 7 mg/dl (9-23); CHLORIDE 105 mmol/L (98-107); CHOLESTEROL 178 mg/dL (<200); LDL CHOLESTEROL 84 mg/dL (9-159); POTASSIUM 4.6 mmol/L (3.4-5.1); SGPT/ALT 15 U/L (5-49); TOTAL PROTEIN 7.2 gm/dL (6.0-8.0); TRIGLYCERIDES 230 mg/dl (<150)
[2024-02-06 11:56] LABS: VITAMIN D, 25-HYDROXY 75.9 ng/mL (30-100)
== END | disposition home or self-care (01) ==
LOC: LAB 10:44
PROVIDERS: ATTEND Internal Medicine
DX: I12.9 Hypertensive chronic kidney disease with stage 1 through stage 4 chronic kidney disease, or unspecified chronic kidney disease (principal); N18.4 Chronic kidney disease, stage 4 (severe); E87.6 Hypokalemia; E78.2 Mixed hyperlipidemia; R53.81 Other malaise; D50.8 Other iron deficiency anemias; M17.0 Bilateral primary osteoarthritis of knee; M79.10 Myalgia, unspecified site; R62.7 Adult failure to thrive

== ENCOUNTER 2024-02-24 17:29 | Emergency (ER) | payer MEDICARE ==
[~2024-02-24] VITALS: Ht 157.4 cm; Wt 56.2 kg
[2024-02-24] MEDS ORDERED: Acetaminophen/Oxycodone 5 MG/325 MG TABLET PO ONE (17:55)
[2024-02-24 19:03] LABS: BASO % 0.3 % (0.0-1.0); EOS # 0.1 10*3/uL (0.0-0.4); EOS % 0.9 % (1.0-4.0); HEMATOCRIT 37.5 % (37.0-47.0); LYMPH # 1.3 10*3/uL (1.3-4.4); LYMPH % 13.5 % (27.0-41.0); MEAN CELL VOLUME 91.7 fl (81.0-99.0); MEAN CORPUSCULAR HGB 30.3 pg (27.0-31.0); MEAN CORPUSCULAR HGB CONC 33.1 g/dl (33.0-37.0); MEAN PLATELET VOLUME 9.3 fl (9.6-12.3); MONO # 1.1 10*3/uL (0.1-1.0); MONO % 11.1 % (3.0-9.0); NEUT % 73.7 % (47.0-73.0); PLATELET COUNT AUTOMATED 248 10*3/uL (130-400); RED BLOOD COUNT 4.09 10*6/uL (4.10-5.10); RED CELL DISTRI WIDTH 13.6 % (0-14.5); WHITE BLOOD COUNT 9.5 10*3/uL (4.8-10.8)
[2024-02-24 19:22] LABS: BUN 12 mg/dl (9-23); CHLORIDE 106 mmol/L (98-107)
[2024-02-24] MEDS ORDERED: Acetaminophen/Hydrocodone Bi 3 TAB PACK PO PRN (19:35)
[2024-02-24] MEDS ORDERED: PERCOCET 5-3251 EACH PO (19:36)
[2024-02-26] MEDS ORDERED: NEURONTIN300 MG PO (17:35)
== END 2024-02-24 19:47 | disposition home or self-care (01) ==
LOC: ED 17:29
PROVIDERS: Emergency Medicine
DX: S53.402A Unspecified sprain of left elbow, initial encounter (principal); S09.8XXA Other specified injuries of head, initial encounter; M79.671 Pain in right foot; M79.672 Pain in left foot; I10 Essential (primary) hypertension; E78.5 Hyperlipidemia, unspecified; Z88.2 Allergy status to sulfonamides; Z88.8 Allergy status to other drugs, medicaments and biological substances; Z98.890 Other specified postprocedural states; Z90.49 Acquired absence of other specified parts of digestive tract; W06.XXXA Fall from bed, initial encounter; Y93.89 Activity, other specified; Y92.89 Other specified places as the place of occurrence of the external cause; Y99.8 Other external cause status

== ENCOUNTER → 2024-06-01 | Outpatient (CLI) | payer OTHER ==
[~2024-06-01] MED LIST changes: +AMLODIPINE BESYL5 MG PO; +ASPIRIN CHEWABL81 MG PO; +CALCIUM MAGNES1 EAC1 PO; +CLOPIDOGREL75 MG PO; +COL-RITE100 M1 PO; +Carafate1 GM PO; +EXELON1 EAC1 T; +FERROUS SULFAT325 MG PO; +LIPITOR40 MG PO; +LOMOTIL 2.5-0.1 EACH PO; +METOPROLOL SUCC50 M1 PO; +MILK OF MA400 MG/51 PO; +MIRTAZAPINE15 M2 PO; +NEURONTIN300 MG PO; +ONDANSETRON HYDR8 MG PO; +PANTOPRAZOLE SO40 MG PO; +PERCOCET 5-3251 EACH PO; +ROSUVASTATIN CA10 MG PO; +SYSTANE COMPLE1.5 ML OP; +SYSTANE COMPLE1.5 ML PO; +VALIUM2 MG PO
[2024-06-01 09:45] LABS: BASO # 0.1 10*3/uL (0.0-0.1); BASO % 0.6 % (0.0-1.0); EOS # 0.1 10*3/uL (0.0-0.4); EOS % 1.3 % (1.0-4.0); HEMATOCRIT 38.8 % (37.0-47.0); MEAN CELL VOLUME 91.1 fl (81.0-99.0); MEAN CORPUSCULAR HGB 28.9 pg (27.0-31.0); MEAN CORPUSCULAR HGB CONC 31.7 g/dl (33.0-37.0); MEAN PLATELET VOLUME 9.2 fl (9.6-12.3); MONO # 0.8 10*3/uL (0.1-1.0); NEUT # 5.8 10*3/uL (2.3-7.9); NEUT % 70.3 % (47.0-73.0); PLATELET COUNT AUTOMATED 364 10*3/uL (130-400); RED BLOOD COUNT 4.26 10*6/uL (4.10-5.10); RED CELL DISTRI WIDTH 13.2 % (0-14.5); WHITE BLOOD COUNT 8.3 10*3/uL (4.8-10.8)
[2024-06-01 10:34] LABS: ALKALINE PHOSPHATASE 58 U/L (46-116); BUN 13 mg/dl (9-23); CHLORIDE 104 mmol/L (98-107); CHOLESTEROL 118 mg/dL (<200); FREE T4 1.33 ng/dl (0.89-1.76); LDL CHOLESTEROL 43 mg/dL (9-159); POTASSIUM 3.5 mmol/L (3.4-5.1); SGPT/ALT 11 U/L (5-49); TOTAL PROTEIN 7.1 gm/dL (6.0-8.0); TRIGLYCERIDES 168 mg/dl (<150)
== END | disposition home or self-care (01) ==
LOC: LAB 09:15
PROVIDERS: ATTEND Internal Medicine
DX: Z13.228 Encounter for screening for other metabolic disorders (principal); Z13.220 Encounter for screening for lipoid disorders; Z13.1 Encounter for screening for diabetes mellitus; Z13.0 Encounter for screening for diseases of the blood and blood-forming organs and certain disorders involving the immune mechanism; Z13.29 Encounter for screening for other suspected endocrine disorder; Z13.6 Encounter for screening for cardiovascular disorders; Z13.89 Encounter for screening for other disorder; E78.2 Mixed hyperlipidemia; R53.83 Other fatigue; E53.9 Vitamin B deficiency, unspecified; E55.9 Vitamin D deficiency, unspecified

== ENCOUNTER 2025-06-10 11:41 | Emergency (ER) | payer OTHER ==
[~2025-06-10] VITALS: Wt 65.8 kg
== END 2025-06-10 12:24 | disposition home or self-care (01) ==
LOC: ED 11:41
DX: Z00.00 Encounter for general adult medical examination without abnormal findings (principal); R53.83 Other fatigue; I10 Essential (primary) hypertension; K21.9 Gastro-esophageal reflux disease without esophagitis; E78.00 Pure hypercholesterolemia, unspecified; M19.90 Unspecified osteoarthritis, unspecified site; F03.90 Unspecified dementia, unspecified severity, without behavioral disturbance, psychotic disturbance, mood disturbance, and anxiety; Z86.73 Personal history of transient ischemic attack (TIA), and cerebral infarction without residual deficits; Z88.1 Allergy status to other antibiotic agents; Z87.440 Personal history of urinary (tract) infections; Z88.8 Allergy status to other drugs, medicaments and biological substances; Z87.19 Personal history of other diseases of the digestive system